=== PATIENT | female | born 1985 | race Two or more races ===

== ENCOUNTER 2020-04-26 10:26 | Outpatient (RCR) | payer MEDICARE, SELFPAY | END 2020-05-14 23:59 | LOC: EMPH 10:26 | PROVIDERS: Visit Provider Family Medicine Geriatric Medicine | DX: Z11.59 Encounter for screening for other viral diseases (principal) | CPT/HCPCS: 87635; U0003 ==

== ENCOUNTER 2020-06-12 17:00 | Outpatient (RCR) | payer MEDICARE, SELFPAY | END 2020-06-14 23:59 | LOC: EMPH 17:00 | PROVIDERS: Visit Provider Family Medicine Geriatric Medicine | DX: Z03.818 Encounter for observation for suspected exposure to other biological agents ruled out (principal) | CPT/HCPCS: 87426 ==

== ENCOUNTER → 2020-06-12 18:03 | Outpatient (CLI) | payer MEDICARE, SELFPAY | PROVIDERS: Visit Provider Family Medicine Geriatric Medicine | DX: Z11.59 Encounter for screening for other viral diseases (principal) | CPT/HCPCS: 87426 ==

== ENCOUNTER 2020-07-07 12:44 | Outpatient (RCR) | payer MEDICARE, SELFPAY | END 2020-07-14 23:59 | LOC: EMPH 12:44 | PROVIDERS: Referring Provider Family Medicine Geriatric Medicine; Visit Provider Family Medicine Geriatric Medicine | DX: Z03.818 Encounter for observation for suspected exposure to other biological agents ruled out (principal) | CPT/HCPCS: 87426 ==

== ENCOUNTER 2020-08-13 14:38 | Outpatient (RCR) | payer MEDICARE, SELFPAY | END 2020-08-14 23:59 | LOC: EMPH 14:38 | PROVIDERS: Referring Provider Family Medicine Geriatric Medicine; Visit Provider Family Medicine Geriatric Medicine | DX: Z03.818 Encounter for observation for suspected exposure to other biological agents ruled out (principal) | CPT/HCPCS: 87426 ==

== ENCOUNTER → 2020-08-18 15:51 | Outpatient (CLI) | payer OTHER, SELFPAY ==
--- NOTE | 2020-08-18 16:00 | RAD_ITS ---
STUDY: X-RAY - THORACIC SPINE REASON FOR EXAM: Female, 35 years old. Thoracic back pain, patient had a fall in the summer, pain ever since, mid thoracic TECHNIQUE: 2 view(s) of the thoracic spine were obtained. COMPARISON: None. FINDINGS: Normal kyphosis of the thoracic spine. There is no substantial scoliosis. There is multilevel endplate spondylosis of the thoracic vertebrae. There is multilevel mild disc space narrowing of the thoracic spine. The soft tissue structures are unremarkable. RAD/Thoracic Spine 2 Views IMPRESSION: Mild degree of disc space narrowing and spondylosis. Electronically Signed: Demetrius Kaur, at 15:24 EST , Service support ,
== END ==
DX: M54.6 Pain in thoracic spine (principal)
CPT/HCPCS: 72070

== ENCOUNTER 2020-09-12 08:40 | Outpatient (RCR) | payer OTHER, SELFPAY | END 2020-09-14 23:59 | LOC: EMPH 08:40 | PROVIDERS: Referring Provider Family Medicine Geriatric Medicine; Visit Provider Family Medicine Geriatric Medicine | DX: Z03.818 Encounter for observation for suspected exposure to other biological agents ruled out (principal) | CPT/HCPCS: 87426 ==

== ENCOUNTER 2020-10-10 09:52 | Outpatient (RCR) | payer OTHER, SELFPAY ==
[2020-09-04 15:12] VITALS: BMI 31.6
== END 2020-10-12 23:59 ==
LOC: EMPH 09:52
PROVIDERS: Referring Provider Family Medicine Geriatric Medicine; Visit Provider Family Medicine Geriatric Medicine
DX: Z03.818 Encounter for observation for suspected exposure to other biological agents ruled out (principal)
CPT/HCPCS: 87426

== ENCOUNTER 2020-11-05 09:44 | Outpatient (RCR) | payer OTHER, SELFPAY | END 2020-11-12 23:59 | LOC: EMPH 09:44 | PROVIDERS: Referring Provider Family Medicine Geriatric Medicine; Visit Provider Family Medicine Geriatric Medicine | DX: Z03.818 Encounter for observation for suspected exposure to other biological agents ruled out (principal) | CPT/HCPCS: 87426 ==

== ENCOUNTER 2020-12-12 10:06 | Outpatient (RCR) | payer OTHER, SELFPAY | END 2020-12-12 23:59 | LOC: EMPH 10:06 | PROVIDERS: Referring Provider Family Medicine Geriatric Medicine; Visit Provider Family Medicine Geriatric Medicine | DX: Z03.818 Encounter for observation for suspected exposure to other biological agents ruled out (principal) | CPT/HCPCS: 87426 ==

== ENCOUNTER 2021-01-09 09:15 | Outpatient (RCR) | payer OTHER, SELFPAY | END 2021-01-12 23:59 | LOC: EMPH 09:15 | PROVIDERS: Referring Provider Family Medicine Geriatric Medicine; Visit Provider Family Medicine Geriatric Medicine | DX: Z03.818 Encounter for observation for suspected exposure to other biological agents ruled out (principal) | CPT/HCPCS: 87426 ==

== ENCOUNTER 2021-02-10 11:23 | Outpatient (RCR) | payer OTHER, SELFPAY | END 2021-02-11 23:59 | LOC: EMPH 11:23 | PROVIDERS: Referring Provider Family Medicine Geriatric Medicine; Visit Provider Family Medicine Geriatric Medicine | DX: Z03.818 Encounter for observation for suspected exposure to other biological agents ruled out (principal) | CPT/HCPCS: 87426 ==

== ENCOUNTER 2021-03-06 10:43 | Outpatient (RCR) | payer OTHER, SELFPAY | END 2021-03-14 23:59 | LOC: EMPH 10:43 | PROVIDERS: PCP Family Medicine Geriatric Medicine; Referring Provider Family Medicine Geriatric Medicine; Visit Provider Family Medicine Geriatric Medicine | DX: Z03.818 Encounter for observation for suspected exposure to other biological agents ruled out (principal) | CPT/HCPCS: 87426 ==

== ENCOUNTER 2021-04-09 12:02 | Outpatient (RCR) | payer OTHER, SELFPAY | END 2021-04-14 23:59 | LOC: EMPH 12:02 | PROVIDERS: PCP Family Medicine Geriatric Medicine; Referring Provider Family Medicine Geriatric Medicine; Visit Provider Family Medicine Geriatric Medicine | DX: Z03.818 Encounter for observation for suspected exposure to other biological agents ruled out (principal) | CPT/HCPCS: 87426 ==

== ENCOUNTER 2021-04-24 12:14 | Outpatient (RCR) | payer OTHER, SELFPAY | END 2021-05-14 23:59 | LOC: EMPH 12:14 | PROVIDERS: PCP Family Medicine Geriatric Medicine; Referring Provider Family Medicine Geriatric Medicine; Visit Provider Family Medicine Geriatric Medicine | DX: Z03.818 Encounter for observation for suspected exposure to other biological agents ruled out (principal) | CPT/HCPCS: 87426 ==

== ENCOUNTER → 2021-04-29 12:24 | Outpatient (CLI) | payer OTHER, SELFPAY ==
--- NOTE | 2021-04-29 12:50 | RAD_ITS ---
STUDY: X-RAY - LUMBAR SPINE REASON FOR EXAM: Female, 35 years old. LOW BACK PAIN TECHNIQUE: 3 view(s) of the lumbar spine were obtained. COMPARISON: None FINDINGS: Normal lumbar lordosis. There is no substantial scoliosis. There is a normal alignment of the vertebrae. Normal vertebral bodies and endplates. Normal disc space heights. Small calculus is seen in the lower pole calyx of the left kidney. RAD/Lumbar Spine 2 or 3 Views IMPRESSION: Normal x-ray examination of the lumbar spine. Small calculus in the lower pole calyx of the left kidney. Electronically Signed: Demetrius Kaur MD at 13:07 EDT , Service support ,
== END ==
PROVIDERS: PCP Family Medicine Geriatric Medicine
DX: M54.41 Lumbago with sciatica, right side (principal)
CPT/HCPCS: 72100

== ENCOUNTER → 2021-05-29 13:16 | Outpatient (CLI) | payer OTHER, SELFPAY ==
--- NOTE | 2021-05-29 13:23 | MRI_ITS ---
STUDY: MRI LUMBAR SPINE WITHOUT CONTRAST REASON FOR EXAM: Female, 35 years old. LOW BACK PAIN, R LOWER EXTREMITY NUMBNESS TECHNIQUE: Standardized fat and water weighted pulse sequences were obtained in the sagittal and axial planes. COMPARISON: None FINDINGS: No marrow edema or fracture or compression deformity is seen. Normal lumbar lordosis. There is a dextroscoliosis of the lumbar spine. Normal conus medullaris that terminates at the T12-L1 level. L1-2: Normal endplates. Normal disc height, hydration and morphology. Normal bilateral facet joints. Normal central canal and bilateral lateral recesses. Normal bilateral intervertebral neural foramina. L2-3: Normal endplates. Normal disc height, hydration and morphology. Normal bilateral facet joints. Normal central canal and bilateral lateral recesses. Normal bilateral intervertebral neural foramina. L3-4: Normal endplates. Normal disc height, hydration and morphology. Normal bilateral facet joints. Normal central canal and bilateral lateral recesses. Normal bilateral intervertebral neural foramina. L4-5: Normal endplates. Mild to moderate disc space narrowing with a broad-based is herniation in addition to a large right paracentral disc protrusion measuring 1.1 cm in diameter and results in a right lateral recess stenosis and compression of descending nerve root. Normal central canal and left lateral recess. The facet joints are mildly hypertrophied. Mild retrolisthesis of L4 and L5 of 2 to 3 mm. Normal bilateral intervertebral neural foramina. L5-S1: Mild retrolisthesis of L5 on S1 of 2 mm. Normal endplates. Mild posterior disc space narrowing and annular bulging are present. Normal bilateral facet joints. Normal central canal and bilateral lateral recesses. Normal bilateral intervertebral neural foramina. Normal visualized sacral ala. Normal visualized paraspinous soft tissue structures. MRI/Spine Lumbar (Routine) IMPRESSION: 1. L4-L5 and L5-S1 degenerative changes, as described above. 2. L4-L5 large right paracentral disc protrusion measuring 1.1 cm in diameter and results in a right lateral recess stenosis and compression of descending nerve root. Electronically Signed: Jace Page MD at 20:00 EDT , Service support ,
== END ==
DX: R20.0 Anesthesia of skin (principal); M54.50 Low back pain, unspecified
CPT/HCPCS: 72148

== ENCOUNTER 2021-06-18 13:52 | Outpatient (RCR) | payer OTHER, SELFPAY | END 2021-07-14 23:59 | LOC: LABSPEC 13:52 | PROVIDERS: Referring Provider Family Medicine Geriatric Medicine; Visit Provider Family Medicine Geriatric Medicine | DX: Z03.818 Encounter for observation for suspected exposure to other biological agents ruled out (principal) ==

== ENCOUNTER 2021-07-02 16:17 | Outpatient (RCR) | payer OTHER, SELFPAY | END 2021-07-14 23:59 | LOC: EMPH 16:17 | PROVIDERS: Referring Provider Family Medicine Geriatric Medicine; Visit Provider Family Medicine Geriatric Medicine | DX: Z03.818 Encounter for observation for suspected exposure to other biological agents ruled out (principal) | CPT/HCPCS: 87426 ==

== ENCOUNTER 2021-08-13 10:16 | Outpatient (RCR) | payer OTHER, SELFPAY | END 2021-08-14 23:59 | LOC: EMPH 10:16 | PROVIDERS: Referring Provider Family Medicine Geriatric Medicine; Visit Provider Family Medicine Geriatric Medicine | DX: Z03.818 Encounter for observation for suspected exposure to other biological agents ruled out (principal) | CPT/HCPCS: 87426; 87635; U0003; U0005 ==

== ENCOUNTER 2021-09-14 08:50 | Outpatient (RCR) | payer OTHER, SELFPAY | END 2021-09-14 23:59 | LOC: EMPH 08:50 | PROVIDERS: Referring Provider Family Medicine Geriatric Medicine; Visit Provider Family Medicine Geriatric Medicine | DX: Z03.818 Encounter for observation for suspected exposure to other biological agents ruled out (principal) | CPT/HCPCS: 87426 ==

== ENCOUNTER 2021-10-12 08:42 | Outpatient (RCR) | payer OTHER, SELFPAY | END 2021-10-12 23:59 | LOC: EMPH 08:42 | PROVIDERS: Referring Provider Family Medicine Geriatric Medicine; Visit Provider Family Medicine Geriatric Medicine | DX: Z03.818 Encounter for observation for suspected exposure to other biological agents ruled out (principal) | CPT/HCPCS: 87426 ==

== ENCOUNTER → 2021-11-05 14:51 | Outpatient (CLI) | payer OTHER, SELFPAY ==
--- NOTE | 2021-11-05 14:57 | CT_ITS ---
STUDY: CT ABDOMEN AND PELVIS WITHOUT CONTRAST ENHANCEMENT OF 1512 HOURS ON 11/05/2021 REASON FOR EXAM: Female, 36 years old. Evaluate for a urinary calculus. RADIATION DOSAGE (If Supplied By Facility): CTDIvol = ( 14.36 ) mGy, DLP = ( 703.04 ) mGycm TECHNIQUE: Transaxial images were obtained from the dome of the diaphragm to the symphysis pubis without oral contrast, and without intravenous contrast. Sagittal and coronal images were reconstructed. Individualized dose optimization techniques were used for this CT. COMPARISON: None. FINDINGS: The visualized lung bases are unremarkable. The visualized portions of the heart are within normal limits. Normal liver. Contracted gallbladder without gallstones. No dilatation of intrahepatic biliary system or common bile duct.. Normal spleen. Normal pancreas. No pancreatitis or pancreatic mass lesions. Normal bilateral adrenal glands. Presence of a 5 mm diameter non-obstructing calculus in the anterior inferior pole calyx of the right kidney. Presence of a 6 mm diameter non-obstructing calculus in the inferior pole calyx of the left kidney. No obstructive uropathy. No evidence of ureteral calculi. No bladder calculus. Presence of a few small pelvic phleboliths. Normal visualized stomach. Normal small intestine. Mild constipation. No diverticulitis, colitis, or intestinal obstruction. Normal air-filled appendix without evidence of acute appendicitis (best seen on axial indications 106 through 114 Normal abdominal aorta. Normal inferior vena cava. Normal retroperitoneum. Normal urinary bladder. Mildly enlarged anteverted uterus. No definite uterine fibroids. Generous sized fallopian tubes. No ovarian cystic or solid mass lesions. Normal abdominal wall. Normal osseous structures. Mild narrowing of the L4-5 intervertebral disc space. Otherwise, no fractures, subluxations or intervertebral disc space narrowing. Normal pelvic bones and hips. CT/Abdomen/Pelvis without Cont IMPRESSION: 1. Presence of 5 and 6 mm non-obstructing calculi in the inferior pole calyces of the right and left kidneys. 2. No obstructive uropathy. Normal bladder. 3. Contracted gallbladder without gallstones. 4. No pancreatitis pancreatic mass lesions. 5. Mild constipation. 6. No appendicitis, diverticulitis, colitis, or chest obstruction. 7. Mildly enlarged anteverted uterus and normal ovaries. 8. No evidence of other significant abnormalities. Electronically Signed: Gustabo Snow MD at 23:45 EDT ,
== END ==
DX: N20.0 Calculus of kidney (principal)
CPT/HCPCS: 74176

== ENCOUNTER 2021-11-17 15:54 | Outpatient (CLI) | payer OTHER, SELFPAY ==
--- NOTE | 2021-11-17 16:04 | RAD_ITS ---
STUDY: X-RAY - ABDOMEN/PELVIS REASON FOR EXAM: Female, 36 years old. KIDNEY STONES TECHNIQUE: 1 AP film of the abdomen COMPARISON: None. FINDINGS: Normal visualized lung bases. There is an unremarkable bowel gas pattern. There is no demonstrated free abdominal air. There is a 5 mm calcification overlying the lower pole of the left kidney. The visualized liver, spleen and kidneys are grossly normal in size and morphology. Normal soft tissue structures. Normal visualized osseous structures. RAD/Abdomen Single View IMPRESSION: 5 mm calcification at the lower pole of the left kidney. Electronically Signed: Gustabo Alfonso MD at 6:14 EDT ,
== END 2021-11-17 23:59 | disposition home or self-care (01) ==
LOC: MTRAD 16:02
PROVIDERS: Referring Provider Urology; Visit Provider Urology
DX: N20.0 Calculus of kidney (principal)
CPT/HCPCS: 74018

== ENCOUNTER 2021-12-21 12:32 | Day surgery (SDC) | payer OTHER, SELFPAY ==
[2021-12-21 13:13] LABS: Internal QC Validated? YES +Cl - CLEAR BKGD; Pregnancy, Urine Negative Negative
[2021-12-21 13:24] VITALS: BP 112/65; PULSE 88; RESP 16; TEMP 36.6; O2SAT 99; BMI 31.4
[2021-12-21] MEDS: Lactated Ringers 1,000 ML 15 ML IV (13:31)
--- NOTE | 2021-12-21 14:21 | PCM.DC ---
Discharge Instructions Diet Discharge Diet: No restrictions Activity Discharge Activity: Return to Normal Activity Dressing / Incision Call your doctor if you observe: Fever of 101 or Higher, Inability to urinate and Inability to have a bowel movement Follow Up Care Please Follow Up With: Sobeida Morejon MD When: 3 weeks with KUB Test Results: Test results from this visit will be discussed in further detail at your follow-up appointment, if applicable. Discharge Plan Admission Attending Provider: Sobeida Morejon Discharge Orders/Prescriptions Prescriptions: New ondansetron HCl [ondansetron HCl] 8 MG tablet 8 mg PO Q8H PRN PRN (Reason: Nausea) 7 Days Qty: 20 RF: 0 phenazopyridine [Pyridium] 200 MG tablet 200 mg PO TID PRN PRN (Reason: Bladder Spasms) 7 Days Qty: 30 RF: 0 oxycodone-acetaminophen [Percocet] 5-325 mg tablet 1 tab PO Q8H PRN (Reason: pain) 7 Days Qty: 20 RF: 0 cephalexin [cephalexin] 500 MG capsule 500 mg PO Q12 3 Days Qty: 6 RF: 0 Continued cyclobenzaprine 10 mg tablet 10 mg PO PRN PRN (Reason: Pain) RF: 0 acetaminophen [Tylenol] 325 mg Tablet 325 mg PO Q6H PRN (Reason: Pain) RF: 0 Referrals / Follow Up: CLINT WHITE [Other] Disposition Disposition (needs filled in before D/C Order can be placed): Home, Self Care
--- NOTE | 2021-12-21 14:24 | PCM.OPRPT ---
Problems Associated Problem List Diagnoses (1) Frequency of micturition: (2) Urgency of micturition: (3) Left renal stone: Report of Operation Date of Procedure: 12/21/21 Pre-Operative Diagnosis: Left renal calculus, urinary urgency, urinary frequency Post-Operative Diagnosis: Same Surgery/Procedure Performed:: Cystoscopy, hydrodistention, left renal extracorporal shockwave lithotripsy Surgeon: Sobeida Morejon Type of Anesthesia: General Description of Procedure: The patient is a 36-year-old female with left renal calculus presenting for definitive surgical intervention for this in addition to further evaluation with cystoscopy for her urinary urgency and frequency. The patient was taken to the operating room and placed on the operating room table in a supine position. She was appropriately padded and secured. Anesthesia monitored the head, neck, airway, IV access and vital signs throughout the case. Once anesthesia was appropriate ministered, the patient was placed into dorsal lithotomy position was prepped and draped in usual sterile fashion. The cystoscope was inserted through the urethra under direct visualization into the urinary bladder. There were no areas of erythema, mass, foreign body or abnormality identified. There was evidence of mild cystitis cystica. The patient's bladder was then filled to capacity and allowed to sit for 2 minutes. The bladder was then drained and the cystoscope was reinserted. Her bladder capacity was 600 cc. Diffuse glomerulations and oozing with terminal hematuria was identified consistent with a diagnosis of interstitial cystitis. The bladder was once again filled to capacity and allowed to sit for 2 minutes. The bladder capacity was measured at 700 cc. Patient's bladder was then emptied and the patient was positioned for lithotripsy. The stone on the left side was identified. 3000 shocks were applied to the calculus which appeared to be well fragmented at the conclusion of the case. A stone was also seen on the patient's right side, medial and approximately 5 mm in size. The patient was then awakened and taken to the recovery room in good condition. There were no complications during this procedure. Grafts/Implants Used: None Complications None Admit VTE Documentation VTE Present on Admission: Yes VTE Mechan Device Prophylaxis: SCD's VTE Pharm Prophylaxis ordered?: No Reason prophylaxis not ordered:: Treatment Not Indicated
[2021-12-21] MEDS: Cefazolin 2 GM in 0.9% Normal Saline 100 ML IV (14:49)
[2021-12-21 15:45] VITALS: BP 112/65; BP 117/82; PULSE 88; RESP 14; TEMP 36.2; O2SAT 98
[2021-12-21 16:00] VITALS: BP 112/65; BP 132/86; PULSE 82; RESP 14; O2SAT 99
[2021-12-21 16:15] VITALS: BP 112/65; BP 119/88; PULSE 83; RESP 16; TEMP 36.3; O2SAT 100
[2021-12-21 16:55] VITALS: BP 112/65; BP 130/97; PULSE 87; RESP 16; TEMP 36.8; O2SAT 100
== END 2021-12-21 17:08 | disposition home or self-care (01) ==
LOC: SDC 12:32 → AC 12:33
PROVIDERS: Anesthesiology; Referring Provider Urology; Visit Provider Urology
PROC: (CPT 50590; principal; 2021-12-21 14:00)
DX: N20.0 Calculus of kidney (principal); R35.0 Frequency of micturition; R39.15 Urgency of urination; Z87.891 Personal history of nicotine dependence; N30.11 Interstitial cystitis (chronic) with hematuria; N39.46 Mixed incontinence; R35.1 Nocturia; J06.9 Acute upper respiratory infection, unspecified
CPT/HCPCS: 50590; 00873; 81025; 87426; J7120; J2405

== ENCOUNTER 2022-02-18 07:49 | Day surgery (SDC) | payer OTHER, SELFPAY ==
[2022-02-18 08:09] VITALS: BP 145/95; PULSE 93; RESP 16; TEMP 36.8; O2SAT 96; BMI 32.2
[2022-02-18] MEDS: Lactated Ringers 1,000 ML 15 ML IV (08:14)
[2022-02-18 08:15] LABS: Internal QC Validated? YES +Cl - CLEAR BKGD; Pregnancy, Urine Negative Negative
--- NOTE | 2022-02-18 08:59 | DCINST_ITS ---
Discharge Instructions Diet Discharge Diet: No restrictions Activity Discharge Activity: Return to Normal Activity and [address] (When not taking narcotics) Dressing / Incision Call your doctor if you observe: Fever of 101 or Higher, Inability to urinate and Inability to have a bowel movement Follow Up Care Please Follow Up With: Sobeida Morejon MD When: Call the office for appointment to be seen with a KUB in 2 to 3 weeks Test Results: Test results from this visit will be discussed in further detail at your follow- up appointment, if applicable. Discharge Plan Admission Attending Provider: Sobeida Morejon Primary Care Provider: CLINT SANCHEZ Discharge Orders/Prescriptions Prescriptions: New oxycodone-acetaminophen [oxycodone-acetaminophen] 5-325 mg tablet 2 tab PO Q8H PRN PRN (Reason: Pain) 7 Days Qty: 20 0RF Continued cyclobenzaprine 10 mg tablet 10 mg PO PRN PRN (Reason: Pain) Label Comments: take 1 tablet by mouth three times a day if needed acetaminophen [Tylenol] 325 mg Tablet 325 mg PO Q6H PRN (Reason: Pain) amitriptyline 75 mg Tablet 75 mg PO QHS meloxicam 15 mg Tablet 15 mg PO DAILY Referrals / Follow Up: CLINT SANCHEZ [Other] Disposition Disposition (needs filled in before D/C Order can be placed): Home, Self Care
--- NOTE | 2022-02-18 09:03 | PCM.OPRPT ---
Problems Associated Problem List Diagnoses (1) Right kidney stone: Report of Operation Date of Procedure: 02/18/22 Pre-Operative Diagnosis: Right renal calculus Post-Operative Diagnosis: Same Surgery/Procedure Performed:: Right renal extracorporal shockwave lithotripsy Surgeon: Sobeida Morejon Type of Anesthesia: General Specimen's removed: None Description of Procedure: The patient is a 36-year-old female who had bilateral renal stones. She underwent a left renal extracorporal shockwave lithotripsy in December. She now presents for management on the right side. The stone is approximately 5 mm in size in the lower pole. There is no evidence of obstruction. Informed consent was obtained. The patient was taken to the operating room and placed in supine position on the operating table. Anesthesia monitored the head, neck, airway, IV access and vital signs throughout the case. Once anesthesia was appropriate ministered the patient was positioned so that the stone was easily identified. 2000 shocks were applied to the stone using the lithotripter. The stone was no longer visible and the case was terminated. The left side shows no further stone visible after the shockwave lithotripsy in December. The patient tolerated the procedure well. She was awakened and taken to the recovery room in good condition. There were no complications during this procedure. Grafts/Implants Used: None Complications None Admit VTE Documentation VTE Present on Admission: Yes VTE Mechan Device Prophylaxis: SCD's VTE Pharm Prophylaxis ordered?: No Reason prophylaxis not ordered:: Treatment Not Indicated
[2022-02-18] MEDS: Cefazolin 2 GM in 0.9% Normal Saline 100 ML IV (09:23)
[2022-02-18 10:13] VITALS: BP 131/91; BP 145/95; PULSE 94; RESP 18; TEMP 36.4; O2SAT 94
[2022-02-18 10:15] VITALS: BP 140/92; BP 145/95; PULSE 86; RESP 18; O2SAT 99
[2022-02-18 10:29] VITALS: BP 115/93; BP 145/95; PULSE 84; RESP 18; O2SAT 99
[2022-02-18 10:41] VITALS: BP 118/75; BP 145/95; PULSE 79; RESP 18; TEMP 36.4; O2SAT 99
[2022-02-18 11:44] VITALS: BP 127/77; BP 145/95; PULSE 88; RESP 16; TEMP 36.7; O2SAT 100
== END 2022-02-18 11:50 | disposition home or self-care (01) ==
LOC: SDC 07:49 → AC 07:51
PROVIDERS: Anesthesiology; Referring Provider Urology; Visit Provider Urology
PROC: (CPT 50590; principal; 2022-02-18 09:15)
DX: N20.0 Calculus of kidney (principal); Z87.891 Personal history of nicotine dependence; R35.1 Nocturia; N39.46 Mixed incontinence; N94.11 Superficial (introital) dyspareunia; N30.11 Interstitial cystitis (chronic) with hematuria
CPT/HCPCS: 50590; 81025; J7120; J2405

== ENCOUNTER → 2022-03-10 | Outpatient (CLI) | payer OTHER, SELFPAY ==
--- NOTE | 2022-03-10 15:14 | RAD_ITS ---
EXAM: XR ABDOMEN, 1 VIEW CLINICAL INDICATION: KIDNEY CALC TECHNIQUE: Frontal supine view of the abdomen/pelvis. This report was created using [employer] report generation technology. COMPARISON: None. FINDINGS: LOWER THORAX: No acute pathology. GASTROINTESTINAL TRACT: Unremarkable. Non-obstructive. No bowel or stomach distention. ORGANS: Unremarkable as visualized. No organomegaly. No abnormal calcifications. BONES/JOINTS: No acute pathology. SOFT TISSUES: No acute pathology. RAD/Abdomen Single View IMPRESSION: Non-obstructive bowel gas pattern. Electronically Signed: Raj Lee MD at 3:15 EDT ,
== END | disposition home or self-care (01) ==
LOC: MTRAD 15:13
PROVIDERS: Referring Provider Urology; Visit Provider Urology
DX: N20.0 Calculus of kidney (principal)
CPT/HCPCS: 74018

== ENCOUNTER → 2022-05-26 | Outpatient (CLI) | payer OTHER, SELFPAY ==
--- NOTE | 2022-05-26 16:02 | CT_ITS ---
STUDY: CT ABDOMEN AND PELVIS WITHOUT CONTRAST REASON FOR EXAM: Female, 36 years old. FLANK PAIN /KIDNEY STONES RADIATION DOSAGE (If Supplied By Facility): CTDIvol = ( 14.57 ) mGy, DLP = ( 735.35 ) mGycm TECHNIQUE: Transaxial images were obtained from the dome of the diaphragm to the symphysis pubis without oral contrast, and without intravenous contrast. Sagittal and coronal images were reconstructed. Individualized dose optimization techniques were used for this CT. COMPARISON: 11/05/2021. FINDINGS: The visualized lung bases are unremarkable. The visualized portions of the heart are within normal limits. There is decreased attenuation of the liver consistent with steatosis. Normal gallbladder and extrahepatic biliary system. Normal spleen. Normal pancreas. Normal bilateral adrenal glands. Minimal bilateral perinephric stranding, otherwise normal right kidney. Tiny stone within the lower pole of the left kidney measuring 1.2 mm. Otherwise normal left kidney. Normal visualized stomach. Normal small intestine. Normal colon. The appendix is visualized and appears normal. Normal abdominal aorta. Normal inferior vena cava. Normal retroperitoneum. Nonspecific slightly prominent lymph nodes within the mesenteric region most compatible with nonspecific inflammatory response. Urinary bladder is decompressed, otherwise unremarkable. Anteverted uterus. No free fluid. Normal abdominal wall. Mild nonspecific spondylosis of the lumbar spine. CT/Abdomen/Pelvis without Cont IMPRESSION: Diffuse fatty liver. Tiny nonobstructive stone within the lower pole of the left kidney measuring 1.2 mm. Otherwise unremarkable abdominal viscera. No acute appendicitis or bowel obstruction. Electronically Signed: Winter Ballard MD at 3:57 EDT ,
== END | disposition home or self-care (01) ==
PROVIDERS: Referring Provider Urology; Visit Provider Urology
DX: N20.0 Calculus of kidney (principal); R10.9 Unspecified abdominal pain
CPT/HCPCS: 74176

== ENCOUNTER → 2022-06-02 | Outpatient (CLI) | payer OTHER, SELFPAY ==
--- NOTE | 2022-06-02 15:41 | RAD_ITS ---
STUDY: X-RAY - ABDOMEN/PELVIS REASON FOR EXAM: Female, 36 years old. Kidney stones. Follow-up. TECHNIQUE: Two AP supine views of the abdomen and pelvis. COMPARISON: CT of the abdomen and pelvis, 05/26/2022. FINDINGS: Normal visualized lung bases. There is an unremarkable bowel gas pattern. There is no demonstrated free abdominal air. The visualized liver, spleen and kidneys are grossly normal in size and morphology. There is nonvisualization of the tiny renal calculi seen on CT Normal soft tissue structures. Normal visualized osseous structures. RAD/Abdomen Single View IMPRESSION: Normal x-ray examination of the abdomen and pelvis. Electronically Signed: Cedrick Kaur DO at 17:37 EDT ,
== END | disposition home or self-care (01) ==
LOC: MTRAD 15:40
PROVIDERS: Referring Provider Urology; Visit Provider Urology
DX: N20.0 Calculus of kidney (principal)
CPT/HCPCS: 74018

== ENCOUNTER → 2022-06-04 | Outpatient (CLI) | payer OTHER, SELFPAY ==
[2022-06-04 15:52] LABS: Calcium,Total 9.5 mg/dL (8.5-10.1)
== END | disposition home or self-care (01) ==
LOC: LAB 14:42
PROVIDERS: Visit Provider Urology
DX: R82.994 Hypercalciuria (principal)
CPT/HCPCS: 36415; 82310

== ENCOUNTER → 2022-08-25 | Outpatient (CLI) | payer OTHER, SELFPAY ==
--- NOTE | 2022-08-25 16:54 | RAD_ITS ---
INDICATION: URI EXAMINATION/TECHNIQUE: X-RAY - XR Chest 2 Views COMPARISON: None. FINDINGS: LINES/DEVICES: None. LUNGS: No consolidation, edema or effusion. No pneumothorax. MEDIASTINUM AND CARDIOVASCULAR STRUCTURES: Cardiac silhouette not enlarged. Central airways and mediastinal contour are unremarkable. BONES AND SOFT TISSUES: Unremarkable. RAD/Chest PA and Lateral IMPRESSION: No radiographic evidence of acute cardiopulmonary disease. Electronically Signed: Ziyad Flowers MD at 0:41 EST ,
== END | disposition home or self-care (01) ==
LOC: RAD 16:47
DX: J06.9 Acute upper respiratory infection, unspecified (principal)
CPT/HCPCS: 71046

== ENCOUNTER → 2023-09-28 | Outpatient (CLI) | payer OTHER, SELFPAY ==
--- OUTSIDE RECORDS SUMMARY | 2023-09-28 12:23 | XMS RPT_ITS | CCD ---
Author Name Unknown Address [address] [place] [address] Organization [facility] Care Team Providers Care Exam Proctor Name Role Phone Unavailable Primary Care Provider Chu GORDON MD, DR JUSTYN Julian Primary Care Unavailmerlin CASSIDY MD, JOSE DE JESUS Attending Unavailable Veronique SORTO, Justyn Primary Care Provider Results Test Name Value Interpretation Reference Range Facil ity Encounters Encounter Date Encounter Type Care Provider Facility Start: 09-27-2023 ambulatory Gerard Frazier RN [facility] Clinical Communication Start: 09-27-2023 Patient encounter procedure Gerard Frazier RN [facility] Clinical Communication Start: 05-22-2023 End: 05-22-2023 Emergency department patient visit DR JUSTYN GORDON MD Facility:A Start: 01-20-2023 ambulatory Soy Anglin RN [facility] Clinical Communication Start: 01-20-2023 Patient encounter procedure Soy Anglin RN [facility] Clinical Communication Start: 09-01-2021 End: 09-01-2021 Subsequent hospital visit by physician Terri (Medical Assistant Ob Gyn) Shan Herndon CNP Work Phone: [facility] Plan of Treatment Date Care Activity Detail Author Start: 2034 Zoster Vaccines (1 of 2) Zoster Vacc jb (1 of 2) [facility] Start: 04-15-2023 Influenza vaccination Influenz a Vaccine (Season Ended) [facility] Start: 2014 Screening for malign ant neoplasm of cervix [facility] Start: 2005 Screening for malign ant neoplasm of cervix Pap Smear [facility] Start: 2002 Hepatitis C screening Hepatitis C Sc reening [facility] Start: 1996 Depression Screening Depression Scre ening [facility] Start: 1991 DTaP/Tdap/Td Vaccine s (1 - Tdap) DTaP/Tdap/Td Vaccines (1 - Tdap) [facility] Start: 1985 MMR Vaccines (1 of 1 - Standard series) MMR Vaccines (1 of 1 - Standard series) [facility] Start: 1985 Varicella vaccination Varicell a Vaccines (1 of 2 - 2-dose childhood series) [facility] Start: 02-10-1985 COVID-19 Vaccine (#1) COVID-19 Vacci ne (#1) [facility] Start: 1984 Hepatitis B Vaccines (1 of 3 - 3-dose series) Hepatitis B Vaccines (1 of 3 - 3-dose series) [facility] Start: 1984 HIV screening HIV Screening [facility] Payers Date Payer Category Payer Unknown [id number] 1985 Unknown [id number] Social History Date Type Detail Facility Tobacco smoking stat [facility] Tobacco smoking consumption unknown [facility] Start: 1984 Sex Assigned At Not on file [facility] Gender identity Not on file [facility] Telephone encounter Note 09-27-2023 Telephone Encounter - Gerard Frazier RN - 09/27/2023 9:11 PM EST Note Date & Type Note Facility 09-27-2023 Telephone encounter Note Form atting of this note might be different from the original. S: Patient spoke with [facility] nurse regarding constipation B: Onset of symptoms/concern 7 days or more A: Patient states she cannot remember that last time she has a bowel movement, she thinks at least a week. She is having is only having minimal water stools. She is feeling nauseous, upper abdomen is sore and distended, she vomited yesterday, poor appetite. Patient denies fever. Patient states she is not normally regular, but is has never been this bad. Patient is been drinking plenty water Smooth move tea, and 1 hour ago she took 2 Ex-lax. R: No available appointments in office. Patient requesting afternoon appointment due to work schedule. She states if she needs to get an xray, to send order to [facility] where she is working. Please reach out to patient to advise. Advised patient to increase fluid intake, water, apple/pear/prune juice, fibrous fruits and foods, and take dose of Milk of Mag now. Patient agreeable. Patient understands care advice. No further needs at this time. Patient instructed to call back with new or worsening symptoms. Reason for Disposition Last bowel movement (BM) > 4 days ago Protocols used: Wuznquqavreg-TLFSE-RO [facility] Note 09-27-2023 Telephone Encounter - Gerard Frazier RN - 09/27/2023 9:11 PM EST Note Date & Type Note Facility 09-27-2023 Miscellaneous Notes Formattin g of this note might be different from the original. S: Patient spoke with [facility] nurse regarding constipation B: Onset of symptoms/concern 7 days or more A: Patient states she cannot remember that last time she has a bowel movement, she thinks at least a week. She is having is only having minimal water stools. She is feeling nauseous, upper abdomen is sore and distended, she vomited yesterday, poor appetite. Patient denies fever. Patient states she is not normally regular, but is has never been this bad. Patient is been drinking plenty water Smooth move tea, and 1 hour ago she took 2 Ex-lax. R: No available appointments in office. Patient requesting afternoon appointment due to work schedule. She states if she needs to get an xray, to send order to [facility] where she is working. Please reach out to patient to advise. Advised patient to increase fluid intake, water, apple/pear/prune juice, fibrous fruits and foods, and take dose of Milk of Mag now. Patient agreeable. Patient understands care advice. No further needs at this time. Patient instructed to call back with new or worsening symptoms. Reason for Disposition Last bowel movement (BM) > 4 days ago Protocols used: [id number]-PS documented in this encounter [facility] Telephone encounter Note 01-20-2023 Telephone Encounter - Soy Anglin RN - 01/20/2023 11:15 AM EDT Note Date & Type Note Facility 01-20-2023 Telephone encounter Note Form atting of this note might be different from the original. S: Patient spoke with [facility] nurse regarding: yeast infection under breast B: Onset of symptoms/concern: today A: Pt c/o yeast infection under breast. Pt wondering if she can get a rx called in rather than coming in for appt. R: Backline called and answered. Pt transferred to office for further assistance. No further needs at this time. Reason for Disposition [1] Caller requesting NON-URGENT health information AND [2] PCP's office is the best resource Protocols used: Information Only Call - No [id number] [facility] Note 01-20-2023 Telephone Encounter - Soy Anglin RN - 01/20/2023 11:15 AM EDT Note Date & Type Note Facility 01-20-2023 Miscellaneous Notes Formattin g of this note might be different from the original. S: Patient spoke with [facility] nurse regarding: yeast infection under breast B: Onset of symptoms/concern: today A: Pt c/o yeast infection under breast. Pt wondering if she can get a rx called in rather than coming in for appt. R: Backline called and answered. Pt transferred to office for further assistance. No further needs at this time. Reason for Disposition [1] Caller requesting NON-URGENT health information AND [2] PCP's office is the best resource Protocols used: Information Only Call - No [id number] documented in this encounter [facility] Summary Purpose Family History No Family History Records FoundNo Family History Records FoundNo Family History Records FoundNo Family History Records FoundNo Family History Records Found Advance Directives No Advanced Directives Records FoundNo Advanced Directives Records FoundNo Advanced Directives Records FoundNo Advanced Directives Records FoundNo Advanced Directives Records Found Additional Source Comments INFORMATION SOURCE (unrecogn ized section and content) DATE CREATED AUTHOR AUTHOR'S ORGANIZ ATION 11/11/2020 [facility] DATE CREATED AUTHOR AUTHOR'S ORGANIZ ATION 09/06/2021 [facility] [place] DATE CREATED AUTHOR AUTHOR'S ORGANIZ ATION 05/24/2023 [facility] DATE CREATED AUTHOR AUTHOR'S ORGANIZ ATION 06/26/2023 [facility] ([place]) Source Comments (unrecognize d section and content) In the event this informatio n is protected by the Federal Confidentiality of Alcohol and Drug Abuse Patient Records regulations: The Federal rules restrict any use of the information to criminally investigate or prosecute any alcohol or drug abuse patient.[facility] Reason for Visit (unrecogniz ed section and content) Reason Onset Date Comments Constipation 09/27/2023 Care Teams (unrecognized sec tion and content) FOR RECORDS PERTAINING TO PATIENTS WHO ARE OR HAVE BEEN ENROLLED IN A CHEMICAL DEPENDENCY/SUBSTANCEABUSE PROGRAM, SOME INFORMATION MAY BE OMITTED. This clinical summary was aggregated from multiple sources. Caution should be exercised in using it in the provision of clinical care. This summary normalizes information from multiple sources, and as a consequence, information in this document may materially change the coding, format and clinical context of patient data. In addition, data may be omitted in some cases. CLINICAL DECISIONS SHOULD BE BASED ON THE PRIMARY CLINICAL RECORDS. [facility] [employer] [facility]. provides no warranty or guarantee of the accuracy or completeness of information in this document.
--- NOTE | 2023-09-28 12:40 | RAD_ITS ---
STUDY: X-RAY - ABDOMEN/PELVIS REASON FOR EXAM: Female, 38 years old. Constipation, acute VOMIT TING TECHNIQUE: Single AP view of the abdomen / pelvis. COMPARISON: None. FINDINGS: Normal visualized lung bases. Thickening of the haustral pattern of the transverse colon. The visualized liver, spleen and kidneys are grossly normal in size and morphology. Normal soft tissue structures. Normal visualized osseous structures. RAD/Abdomen Single View IMPRESSION: Thickening of the haustral pattern of the transverse colon. Electronically Signed: Demetrius Kaur MD at 15:23 EST ,
== END | disposition home or self-care (01) ==
LOC: RAD 12:08
DX: K59.00 Constipation, unspecified (principal); R11.10 Vomiting, unspecified
CPT/HCPCS: 74018

== ENCOUNTER → 2024-04-17 | Outpatient (CLI) | payer OTHER, SELFPAY ==
--- NOTE | 2024-04-17 | MRI_ITS ---
STUDY: MRI BRAIN WITH AND WITHOUT CONTRAST (ATTENTION INTERNAL AUDITORY CANALS - I.A.C.''s) REASON FOR EXAM: Female, 38 years old. ASYMMETRIC HEARING LOSS, DIZZINESS TECHNIQUE: Standardized multiplanar fat and water weighted pulse sequences were obtained. IV 16 CLARISCAN was administered for the contrast portion of the examination. COMPARISON: None. FINDINGS: Normal bilateral temporal bones. Normal bilateral internal auditory canals. There is no demonstrated intracanalicular or cisternal vestibular schwannoma (acoustic neuroma). There is no enhancement of the bilateral VIIth or VIIIth cranial nerves. Normal bilateral cochlea, vestibules and semicircular canals. Normal size of the ventricles and extra-axial spaces for the patient''s age. Normal white matter tracts of the supratentorial brain. There is no evidence for recent intracranial ischemia or other cause of cytotoxic edema on diffusion weighted imaging (DWI). Normal bilateral basal ganglia. Normal thalami. Normal flow voids within the major intracranial circulation suggesting patency by spin echo criteria. Normal venous enhancement. There is no enhancing intra-axial or extra-axial abnormality. There is no extra-axial fluid accumulation. Normal sella turcica, pituitary gland, infundibular stalk, optic chiasm and hypothalamus. Normal tectal plate and pineal gland. Normal midbrain, kaylin and medulla. Normal cerebellum. Normal basal cisterns. No demonstrated orbital abnormality, within the constraints of a routine brain study. Normal visualized paranasal sinuses. Normal calvarium and skull base. Normal visualized soft tissue structures. Normal visualized upper cervical spine. MRI/Brain W/WO Contrast IMPRESSION: Normal unenhanced and enhanced MRI of the bilateral internal auditory canals (I.A.C''s). Electronically Signed: Jeremiah Louise MD at 11:43 EDT ,
[2024-04-17 13:13] LABS: CREATININE FINGERSTICK < 1.0 mg/dL (0.55-1.02); EGFR FINGERSTICK > 60.0000 mL/min (>60)
== END | disposition home or self-care (01) ==
LOC: MRI 12:41
PROVIDERS: Referring Provider Otolaryngology; Visit Provider Otolaryngology
DX: H90.41 Sensorineural hearing loss, unilateral, right ear, with unrestricted hearing on the contralateral side (principal); R42 Dizziness and giddiness
CPT/HCPCS: 70553; A9575

== ENCOUNTER → 2024-05-08 | Outpatient (CLI) | payer OTHER, SELFPAY ==
[2024-05-08 12:10] LABS: Anion Gap 6 (5-15); BUN 9 mg/dL (7-18); BUN/Creat Ratio 12.4 RATIO (10-20); Calcium,Total 9.2 mg/dL (8.5-10.1); Chloride 108 mmol/L (98-107); Creatinine, Serum 0.72 mg/dL (0.55-1.02); EST Glomerular Filtration Rate 95 mL/min (>60); Est Glom Filt Rate - Afr Amer 115 mL/min (>60); Glucose 95 mg/dL (74-106); Potassium 3.9 mmol/L (3.5-5.1); Sodium Level 136 mmol/L (136-145)
[2024-05-09 13:08] LABS: ANTINUCLEAR ANTIBODIES DIRECT Negative (Negative)
[2024-05-09 17:07] LABS: CMV Acute Antibody IgM < 30.0 AU/mL (0.0-29.9); CMV Antibody IgG < 0.60 U/mL (0.00-0.59); EBV Acute VCA IgM < 36.0 U/mL (0.0-35.9)
[2024-05-12 01:07] LABS: B. henselae IgG Negative titer (Neg:<1:320); B. henselae IgM Negative titer (Neg:<1:100); B. quintana IgG Negative titer (Neg:<1:320); B. quintana IgM Negative titer (Neg:<1:100); Lyme IgG P18 Ab Absent (.); Lyme IgG P23 Ab Absent (.); Lyme IgG P28 Ab Absent (.); Lyme IgG P30 Ab Absent (.); Lyme IgG P39 Ab Absent (.); Lyme IgG P41 Ab Present (.); Lyme IgG P45 Ab Absent (.); Lyme IgG P58 Ab Present (.); Lyme IgG P66 Ab Absent (.); Lyme IgG P93 Ab Absent (.); Lyme IgG WB Interpretation Negative (.); Lyme IgM P23 Ab Absent (.); Lyme IgM P39 Ab Absent (.); Lyme IgM P41 Ab Absent (.); Lyme IgM WB Interpretation Negative (.)
== END | disposition home or self-care (01) ==
PROVIDERS: Referring Provider Otolaryngology; Visit Provider Otolaryngology
DX: R53.82 Chronic fatigue, unspecified (principal); R51.9 Headache, unspecified; F41.9 Anxiety disorder, unspecified; E28.9 Ovarian dysfunction, unspecified; R61 Generalized hyperhidrosis; H53.129 Transient visual loss, unspecified eye; H90.2 Conductive hearing loss, unspecified; G89.29 Other chronic pain; G90.9 Disorder of the autonomic nervous system, unspecified; G47.00 Insomnia, unspecified; R11.0 Nausea; R42 Dizziness and giddiness; K21.9 Gastro-esophageal reflux disease without esophagitis; R25.3 Fasciculation
CPT/HCPCS: 36415; 80048; 86038; 86225; 86235; 86611; 86617; 86644; 86645; 86664; 86665

== ENCOUNTER → 2024-06-05 | Outpatient (CLI) | payer OTHER, SELFPAY ==
[2024-06-05 16:54] LABS: AST(SGOT) 14 U/L (15-37); Alanine Aminotransfer ALT/SGPT 23 U/L (13-56)
== END | disposition home or self-care (01) ==
LOC: LAB 14:52
DX: B35.1 Tinea unguium (principal)
CPT/HCPCS: 36415; 84450; 84460

== ENCOUNTER → 2024-06-22 | Outpatient (CLI) | payer OTHER, SELFPAY | END | disposition home or self-care (01) | LOC: CT 08:23 | PROVIDERS: Referring Provider Internal Medicine; Visit Provider Internal Medicine | DX: R42 Dizziness and giddiness (principal) | CPT/HCPCS: 70480 ==

== ENCOUNTER → 2024-06-27 | Outpatient (CLI) | payer OTHER, SELFPAY ==
[2024-06-27 08:58] LABS: Vitamin D,25 Hydroxy 18.2 ng/mL
[2024-07-01 21:06] LABS: G6PD Quant Test 321 (127-427); Red Blood Cell Count Test/G6PD 4.84 x10E6/uL (3.77-5.28); VITAMIN B6 6.9 ug/L (3.4-65.2); Vitamin B1, Thiamine 95.7 nmol/L (66.5-200.0); Zinc, WHOLE BLOOD 610 ug/dL (440-860)
== END | disposition home or self-care (01) ==
PROVIDERS: Referring Provider Nurse Practitioner Family; Visit Provider Nurse Practitioner Family
DX: R53.82 Chronic fatigue, unspecified (principal); R51.9 Headache, unspecified; F41.9 Anxiety disorder, unspecified; E28.9 Ovarian dysfunction, unspecified; R61 Generalized hyperhidrosis; H53.129 Transient visual loss, unspecified eye; H90.2 Conductive hearing loss, unspecified; G89.29 Other chronic pain; G90.9 Disorder of the autonomic nervous system, unspecified; G47.00 Insomnia, unspecified; R11.0 Nausea; R42 Dizziness and giddiness; K21.9 Gastro-esophageal reflux disease without esophagitis; R25.3 Fasciculation; A69.20 Lyme disease, unspecified; A79.82 Anaplasmosis [A. phagocytophilum]; B60.00 Babesiosis, unspecified
CPT/HCPCS: 36415; 82306; 82746; 82955; 84207; 84425; 84630

== ENCOUNTER → 2024-08-09 | Outpatient (CLI) | payer OTHER, SELFPAY | END | disposition home or self-care (01) | LOC: CT 07:59 | PROVIDERS: Referring Provider Internal Medicine; Visit Provider Internal Medicine | DX: R42 Dizziness and giddiness (principal) ==

== ENCOUNTER → 2025-02-25 | Outpatient (CLI) | payer OTHER, SELFPAY | END | disposition home or self-care (01) | LOC: LAB 16:31 | PROVIDERS: Referring Provider Nurse Practitioner Family; Visit Provider Nurse Practitioner Family | DX: Z13.220 Encounter for screening for lipoid disorders (principal); Z82.49 Family history of ischemic heart disease and other diseases of the circulatory system; Z83.2 Family history of diseases of the blood and blood-forming organs and certain disorders involving the immune mechanism; D68.59 Other primary thrombophilia | CPT/HCPCS: 36415 ==